=== PATIENT | female | born 1965 | race Caucasian/White ===

== ENCOUNTER 2016-12-03 01:10 | Inpatient (IN) | payer MEDICAID, OTHER ==
[2016-12-03] VITALS (10 sets, daily range): BP systolic 87–156; BP diastolic 66–90
[~2016-12-03] VITALS: Ht 160 cm; Wt 118.4 kg
[~2016-12-03 01:10] MED LIST: CYCL-405 PO; GLUXL5 PO; HYDR-4446 PO; HYDR-699 PO; [UNRECOGNIZED DRUG - CODE] PO
--- NOTE | 2016-12-03 01:12 | NUR ---
BIBA TO ER BED 6
--- NOTE | 2016-12-03 01:12 | NUR ---
Patient being evaluated by physician at bedside.
[2016-12-03] MEDS ORDERED: NACL 0.9% 2,000 ML IV ONE ×2 (01:18→02:25)
[2016-12-03] MEDS ORDERED: ALBUTEROL SULFATE/IPRATROPIU 3 ML SOL IH ONE (01:20)
[2016-12-03] MEDS ORDERED: HYDROmorphone 1 MG/ML AMP IVP ONE ×2 (01:25→02:45)
--- NOTE | 2016-12-03 01:28 | NUR ---
PATIENT REFUSED DUONEB N TREATMENT, DR. BURCH IS AWARE
[2016-12-03] MEDS ORDERED: ACET-3783 PO (01:34)
--- NOTE | 2016-12-03 01:50 | NUR ---
51/F c/o severe abdominal pain accompanied by N/V x2 hours. Pt c/o 10/10 severe abdominal pain. Pt biba from home. Pt arrived pale, diaphoretic. AOX4, clear speech. Pt had stomach surgery 2 months ago, pt states "My stomach exploded and they had to fix it." Abdomen large, soft, tender active bowel sounds x4 quadrants. Pt placed on case monitor, pulse oximetry and blood pressure monitoring.
[2016-12-03] MEDS ORDERED: ONDANSETRON 4 MG/2 ML VIAL IVP ONE ×2 (02:00→02:45)
[2016-12-03 02:01] LABS: HEMATOCRIT 50.6 % (36-48); MEAN CORPUSCULAR HEMOGLOBIN 24 pg (27-31); MEAN CORPUSCULAR HGB CONC 32 g/dL (33-37); MEAN CORPUSCULAR VOLUME 76 fL (80-94); PLATELET COUNT (AUTO) 491 K/uL (140-450); RED BLOOD CELL COUNT(AUTO) 6.68 MIL/uL (4.20-5.40); RED CELL DISTRIBUTION WIDTH 16.1 % (11.6-13.7); WHITE BLOOD COUNT (AUTO) 14.8 K/uL (4.8-10.8)
--- NOTE | 2016-12-03 02:06 | NUR ---
Pt taken to CT via rarturo.
[2016-12-03 02:16] LABS: LYMPHOCYTES % (MANUAL) 34 % (20-46); MONOCYTES % (MANUAL) 6 % (5-12); PROTHROMBIN TIME 10.9 secs (10.8-13.4)
[2016-12-03 02:21] LABS: ALBUMIN 4.1 g/dL (3.4-5.0); ANION GAP 23.6 (8-16); CARBON DIOXIDE 16.2 mmol/L (21-32); CREATININE 1.4 mg/dL (0.6-1.3); POTASSIUM 3.8 mmol/L (3.5-5.1); TOTAL BILIRUBIN 1.1 mg/dL (0.0-1.0)
[2016-12-03] MEDS ORDERED: LEVOFLOXACIN 750 MG/D5W PREMIX 150 ML IV ONE (02:25)
[2016-12-03] MEDS ORDERED: metroNIDAZOLE 500 MG/NS PREMIX 100 ML IV ONE (02:25)
--- NOTE | 2016-12-03 02:34 | NUR ---
Pt returned from CT
[2016-12-03] MEDS ORDERED: INSULIN HUMAN REGULAR 100 UNITS/ML 10 ML VIAL IVP ONE (03:25)
[2016-12-03 03:45] LABS: APPEARANCE,URINE CLEAR (CLEAR); BILIRUBIN,URINE 1+ (NEGATIVE); BLOOD, URINE NEGATIVE (NEGATIVE); COLOR,URINE YELLOW (YELLOW); LEUKOCYTE ESTERASE ,URINE NEGATIVE (NEGATIVE); NITRITE, URINE NEGATIVE (NEGATIVE); PH,URINE 5.5 (5.0-9.0); UGLUCOSE TRACE (NEGATIVE)
[2016-12-03] MEDS ORDERED: HYDROcodone/APAP 7.5/325 MG 1 TAB PO PRN ×2 (03:55→07:50)
[2016-12-03] MEDS ORDERED: ACETAMINOPHEN 325 MG TAB PO PRN ×2 (03:55→07:50)
[2016-12-03] MEDS ORDERED: ONDANSETRON 4 MG/2 ML VIAL IM/IVP PRN (03:55)
[2016-12-03] MEDS ORDERED: DOCUSATE SODIUM 100 MG GELCAP PO PRN ×2 (03:55→07:50)
[2016-12-03 04:03] LABS: RBC,URINE 0-5 (RARE) /HPF (0-5); WBC,URINE 0-5 (RARE) /HPF (0-5)
[2016-12-03 04:04] LABS: HYALINE CASTS, URINE 0-10 /LPF (None Seen); URINE AMORPHOUS URATE 3+ /HPF (None Seen)
[2016-12-03] MEDS: BLOOD GLUCOSE MONITORING 1 DEV DEV FS SCH ×17 (04:05→21:00)
[2016-12-03] MEDS ORDERED: INSULIN HUMAN REGULAR 100 UNITS in NACL 0.9% 100 ML IV SCH (04:05)
[2016-12-03] MEDS ORDERED: DEXTROSE 50% 50 ML SYR IVP PRN ×3 (04:05→19:40)
[2016-12-03] MEDS ORDERED: ONDANSETRON 4 MG/2 ML VIAL IVP PRN (04:05)
[2016-12-03] MEDS: MORPHINE SULFATE 2 MG/ML SYR IVP PRN ×2 (04:06→07:40)
[2016-12-03 04:08] LABS: BARBITURATE, URINE NEG. ng/ml (NEG <=200); BENZODIAZEPINE, URINE NEG. ng/mL (NEG <=200); CANNABINOID, URINE NEG. ng/mL (NEG <=50); COCAINE, URINE NEG. ng/mL (NEG <=300); OPIATE, URINE POS. ng/mL (NEG <=2000); PHENCYCLIDINE SCREEN,URINE NEG. ng/mL (NEG <=25)
--- NOTE | 2016-12-03 04:18 | NUR ---
IVP PAIN MEDS GIVEN PAIN NOW 07/01. VSS, PT STABLE, RESP E/U, AAOX4.
[2016-12-03 04:22] LABS: FREE T4 (FREE THYROXINE) 1.41 ng/dL (0.76-1.46); MAGNESIUM 1.5 mg/dL (1.8-2.4); PHOSPHORUS 3.8 mg/dL (2.5-4.9); THYROID STIMULATING HORMONE 1.77 uIU/mL (0.34-3.74)
--- NOTE | 2016-12-03 04:39 | NUR ---
Patient will be admitted to care of DR SAWYER. Admited to ICU. Will go to room 1. Belongings list completed. Report to .
--- NOTE | 2016-12-03 05:00 | NUR ---
RECEIVED REPORT FROM HALLIE ROJAS. PT TRANSPORTED WITH RN ON [facility]. ABLE TO AMBULATE TO BED WITH STEADY GAIT. PT IS ALERT AND ORIENTED X4. VERBALLY RESPONSIVE. ABLE TO FOLLOW COMMAND. C/O 7/10 PAIN. MD AT BEDSIDE AND NOTIFIED. WILL AWAIT MD ASSESSMENT INSTRUCTED. BILATERAL PERRLA NOTED. PT ON RA SATURATING AT 92%. TOLERATING WELL. ST ON MONITOR. UNABLE TO AUSCULTATE BOWEL SOUNDS. MD AWARE. ABDOMEN APPEARS DISTENDED, TENDER TO PALPATION. NAUSEA AND EPISODES OF LITTLE EMESIS NOTED. HEALED SURGICAL INCISION FROM RECENT ABDOMINAL SURGERY NOTED. PER PT, SHE IS ABLE TO VOID FREELY. WILL ALERT STAFF WHEN SHE NEEDS TO VOID. ABLE TO MOVE ALL EXTREMITIES. GENERALIZED WEAKNESS NOTED. R HAND 22 GAUGE IV NOTED. INTACT AND PATENT. CONTINUING INSULIN DRIP. L WRIST 20 GAUGE NOTED. INTACT AND PATENT. SAFETY PRECAUTION MAINTAINED. CALL LIGHT WITHIN REACH. BED AT LOWEST SETTING. WILL CONTINUE TO MONITOR FOR CHANGES.
[2016-12-03] MEDS: NACL 0.9% 1,000 ML IV SCH ×5 (05:18→20:20)
[2016-12-03] MEDS ORDERED: DEXT 5% / NACL 0.45% 1,000 ML IV PRN (06:40)
--- NOTE | 2016-12-03 07:17 | NUR ---
ENDORSED CARE TO HALLIE KOWALSKI. PT IS STABLE.
--- NOTE | 2016-12-03 07:20 | NUR ---
RECEIVED PT FROM HALLIE KELLY. PT SEEN AT BEDSIDE; C/O 8/10 BACK PAIN. PER MD, HOLD PAIN MEDS AT THIS TIME UNTIL XR IS DONE FOR SBO. PT IS AAOX4, ON ROOM AIR, NO S/S DISTRESS OR SOB. PT HAS LEFT WRIST 20G IV RUNNING IVF AND RIGHT HAND 22G IV RUNNING INSULIN DRIP. ON SIGNAL TIMER; HR [address] PT IS NPO AT THIS TIME; BOWEL SOUNDS ABSENT. REDNESS ON ABD FOLDS AND HEALED MIDLINE ABD INCISION NOTED. PT ABLE TO MOVE X4 EXTREMITIES AND TURN SELF. CALL LIGHT LEFT AT BEDSIDE. SAFETY MEASURES CHECKED, WILL CONTINUE TO MONITOR.
--- NOTE | 2016-12-03 07:34 | NUR ---
DR UMANZOR AND RESIDENTS AT BEDSIDE. UPDATED MD ON PATIENT CONDITION. PER MD, OK TO GIVE PAIN MEDICATION RIGHT NOW. MD WILL ALSO PUT IN ORDER FOR NGT INSERTION. WILL FOLLOW UP ON ORDERS.
--- NOTE | 2016-12-03 07:40 | NUR ---
PT C/O 10/31 BACK PAIN. PER LYNSEY VILLALPANDO TO GIVE MORPHINE. MORPHINE ADMINISTERED WITH EDUCATION. PT VERBALIZED UNDERSTANDING.
[2016-12-03] MEDS ORDERED: MORPHINE SULFATE 2 MG/ML SYR IVP PRN ×2 (07:50→21:15)
[2016-12-03] MEDS ORDERED: KETOROLAC 30 MG/ML VIAL IM PRN ×2 (07:55→20:50)
--- NOTE | 2016-12-03 08:14 | NUR ---
PATIENT HAS BEEN SCREENED AND CATEGORIZED HIGH NUTRITION RISK. PATIENT WILL BE SEEN WITHIN 1-2 DAYS OF ADMISSION. 12/03/16-12/04/[address]
--- NOTE | 2016-12-03 08:40 | NUR ---
PT ASKING FOR PAIN MEDS. TOLD PATIENT THAT DR ADAM WILL GIVE HER TORADOL FOR PAIN. PT STATED THAT SHE DOES NOT TORADOL AND WILL CALL HER BROTHER TO BRING HER PAIN MEDS. TOLD PATIENT THAT THE REASON WHY WE ARE NOT GIVING NARCOTICS UNTIL AFTER XRAY IS BECAUSE SHE HAS DX OF SBO. GIVING NARCOTICS WILL MAKE HER BOWELS NOT WORK EVEN MORE. PT VERBALIZED UNDERSTANDING, BUT WILL REQUESTS NARCOTIC PAIN MEDS. DR ADAM NOTIFIED. PER DR ADAM, DO NOT GIVE OPIOIDS UNTIL AFTER XRAY IS DONE.
--- NOTE | 2016-12-03 08:46 | NUR ---
XR TECH AT BEDSIDE. PER LYNSEY ORELLANA TO GIVE DILAUDID AFTER XRAY.
[2016-12-03] MEDS ORDERED: HYDROmorphone 1 MG/ML AMP IVP PRN ×2 (08:55→09:05)
--- NOTE | 2016-12-03 09:07 | NUR ---
ADMINISTERED DILAUDID PER MD ORDER. WILL CONTINUE TO MONITOR.
[2016-12-03] MEDS ORDERED: HYDROmorphone 1 MG/ML AMP IVP SCH (09:10)
[2016-12-03] MEDS ORDERED: LORazepam 2 MG/ML VIAL IVP SCH ×3 (09:12→20:55)
[2016-12-03] MEDS ORDERED: MAG SULF 2000 MG/WATER PREMIX 50 ML IV SCH ×2 (09:15→12:00)
--- NOTE | 2016-12-03 09:30 | NUR ---
PT'S BROTHER, MANJEET, AND PT'S SON VISITING. MANJEET CAN BE REACHED AT [phone]. UPDATED MANJEET ON PT CONDITION.
[2016-12-03 09:36] LABS: ANION GAP 14.4 (8-16); CARBON DIOXIDE 24.4 mmol/L (21-32); CREATININE 1.1 mg/dL (0.6-1.3); POTASSIUM 4.8 mmol/L (3.5-5.1)
--- NOTE | 2016-12-03 10:30 | NUR ---
MEDICATIONS ADMINISTERED WITH EDUCATION. PT VERBALIZED UNDERSTANDING. WILL CONTINUE TO MONITOR.
--- NOTE | 2016-12-03 10:36 | NUR ---
PT C/O NAUSEA. ZOFRAN ADMINISTERED. WILL CONTINUE TO MONITOR.
--- NOTE | 2016-12-03 11:18 | NUR ---
PT SLEEPING AT THIS TIME. NO S/S DISTRESS OR SOB. WILL CONTINUE TO MONITOR.
--- NOTE | 2016-12-03 11:25 | NUR ---
12/03/16 RD INITIAL ASSESSMENT COMPLETED PLEASE REFER TO NUTRITION ASSESSMENT UNDER CARE ACTIVITY FOR ESTIMATED NUTRITIONAL NEEDS. 1. WHEN MEDICALLY FEASIBLE, INITIATE PO DIET - TO START ON CLEAR LIQUID DIET AND ADVANCE TOLERATED TO 60G CONSISTENT CARBOHYDRATE DIET 2. RD TO FOLLOW-UP HIGH RISK, 2-[address]
[2016-12-03 12:57] LABS: ANION GAP 11.2 (8-16); CARBON DIOXIDE 26.4 mmol/L (21-32); POTASSIUM 4.6 mmol/L (3.5-5.1)
--- NOTE | 2016-12-03 13:17 | NUR ---
DR LEPE AT NURSING STATION. NOTIFIED THAT ANION GAP 11.2. BG 173. ASKING MD IF IT IS OK TO START PT ON SUBQ INSULIN AND D/C DRIP. WILL PUT IN ORDERS. WILL FOLLOW UP.
[2016-12-03] MEDS ORDERED: DEXT 5% / NACL 0.45% 1,000 ML IV SCH (13:25)
--- NOTE | 2016-12-03 14:38 | NUR ---
DR LEPE PREPWILIAM FOR CENTRAL LINE INSERTION. ATIVAN AND DILAUDID ADMINISTERED PER MD ORDERS. WILL CONTINUE TO MONITOR.
[2016-12-03] MEDS ORDERED: LIDOCAINE 1% 500 MG/50 ML VIAL INJ SCH ×3 (15:10→15:15)
--- NOTE | 2016-12-03 15:19 | NUR ---
DR LEPE INSERTING CENTRAL LINE AT THIS TIME. ASKING FOR ATIVAN 1MG AND LIDOCAINE 1% FOR CENTRAL LINE. MD STATED IT IS OK TO TAKE VERBAL ORDER. ORDERS PLACED. ATIVAN ADMINISTERED TO PATIENT AND LIDOCAINE DRAWN FOR MD. WILL CONTINUE TO MONITOR.
--- NOTE | 2016-12-03 15:47 | NUR ---
DR. LEPE TALKING TO PT'S BROTHER, MANJEET. PER , DO NOT GIVE NARCOTIC PAIN MEDS AT THIS TIME. WILL FOLLOW UP WITH ORDERS.
--- NOTE | 2016-12-03 15:48 | NUR ---
XR TECH AT BEDSIDE.
[2016-12-03 16:33] LABS: ANION GAP 14.2 (8-16); CREATININE 0.8 mg/dL (0.6-1.3); POTASSIUM 4.2 mmol/L (3.5-5.1)
--- NOTE | 2016-12-03 18:50 | NUR ---
DR ADAM AT BEDSIDE TALKING TO PATIENT. NOTIFIED MD THAT PT'S HR HAS BEEN 130S SINCE CENTRAL LINE INSERTION. ALSO, PT IS C/O PAIN. PER DR ADAM, SBO IS GETTING WORSE D/T NARCOTICS. MD EXPLAINING TO PT THE RISKS ASSOCIATED WITH TAKING MORE NARCOTICS WITH SBO. PT STILL REFUSING TORADOL FOR PAIN MED. ASKED MD TO CHANGE FINGER STICKS TO Q4H. MD STATED THAT HE WILL PUT IN ORDERS. ALSO NOTIFIED MD THAT SMALL BOWEL SERIES IS NOT DONE BECAUSE PT'S BOWELS ARE NOT MOVING. WILL FOLLOW UP WITH ORDERS.
[2016-12-03] MEDS: INSULIN LISPRO SLIDING SCALE 100 UNITS/ML VIAL SUBQ PRN ×2 (18:59→21:00)
--- NOTE | 2016-12-03 19:25 | NUR ---
ENDORSED PLAN OF CARE TO HALLIE LI.
[2016-12-03] MEDS ORDERED: INSULIN HUMAN REGULAR 100 UNITS/ML 10 ML VIAL SUBQ PRN (19:40)
--- NOTE | 2016-12-03 20:00 | NUR ---
REPORT TAKEN FROMDAY NURSE WITH RESUME CARE
[2016-12-03] MEDS ORDERED: MECLIZINE 25 MG TAB PO PRN (20:50)
[2016-12-03] MEDS ORDERED: GABAPENTIN 300 MG CAP PO SCH (20:55)
[2016-12-03] MEDS ORDERED: BLOOD GLUCOSE MONITORING 1 DEV DEV FS SCH (21:00)
[2016-12-03] MEDS ORDERED: MORPHINE SULFATE 2 MG/ML SYR IVP SCH (21:10)
--- NOTE | 2016-12-03 21:30 | NUR ---
PT VOMIT X 1 WITH BROW COLOR, TOTAL BATH GIVEN LENINS CHANGED, PT OUT OFF BED, VOID X1, BM X1
--- NOTE | 2016-12-03 23:00 | NUR ---
ULTRASOUND DONE AT THE BEDSIDE, PT TOLERATING WELL
[2016-12-04] VITALS (12 sets, daily range): BP systolic 126–163; BP diastolic 78–105
--- NOTE | 2016-12-04 02:00 | NUR ---
PT'S ASLEEP. NO C/O OTHERS
[2016-12-04] MEDS: NACL 0.9% 1,000 ML IV SCH ×4 (02:35→21:34)
[2016-12-04 05:12] LABS: HEMOGLOBIN 13.7 g/dL (12.0-16.0); MEAN CORPUSCULAR HEMOGLOBIN 25 pg (27-31); MEAN CORPUSCULAR HGB CONC 33 g/dL (33-37); MEAN CORPUSCULAR VOLUME 76 fL (80-94); PLATELET COUNT (AUTO) 319 K/uL (140-450); RED BLOOD CELL COUNT(AUTO) 5.55 MIL/uL (4.20-5.40); WHITE BLOOD COUNT (AUTO) 6.4 K/uL (4.8-10.8)
[2016-12-04 05:26] LABS: ANION GAP 11.9 (8-16); CREATININE 0.7 mg/dL (0.6-1.3); POTASSIUM 3.9 mmol/L (3.5-5.1)
[2016-12-04 05:29] LABS: MAGNESIUM 2.1 mg/dL (1.8-2.4); PHOSPHORUS 3.1 mg/dL (2.5-4.9)
[2016-12-04 06:35] LABS: EOSINOPHILS % (MANUAL) 2 % (0-4); LYMPHOCYTES % (MANUAL) 44 % (20-46); MONOCYTES % (MANUAL) 11 % (5-12)
[2016-12-04] MEDS: BLOOD GLUCOSE MONITORING 1 DEV DEV FS SCH ×4 (07:10→21:20)
--- NOTE | 2016-12-04 07:10 | NUR ---
ACCU CHECK DONE , RESULT 247 MG/DL , HUMALOG 4 UNIT SUBQ GIVEN AT LEFT UPPER ARM , CHAIREZ - CRN WITNESS
--- NOTE | 2016-12-04 07:15 | NUR ---
REPORT ENDORSE TO DAY NURSE JACKIE - RN WITH RESUME CARE
--- NOTE | 2016-12-04 07:20 | NUR ---
RECEIVED REPORT FROM NIGHT RN FOR CONTINUITY OF CARE.
--- NOTE | 2016-12-04 07:30 | NUR ---
PATIENT IS AWAKE, ORIENTED TO PERSON, PLACE, DATE AND TIME. SKIN WARM TO TOUCH WNL, TOENAILS WNL, NO EDEMA, FINE HAIR GROWTH AND +2 BILATERAL PEDAL PULSES NOTED. RIGHT NARES NGT TO LOW INTERMITTENT SUCTION NOTED. URINE AND BOWEL CONTINENT, ABLE TO USE BEDSIDE COMMODE. RIGHT IJ CENTRAL LINE, PATENT AND INTACT. SURGICAL SCARRING NOTED TO MIDLINE ABDOMEN. ABLE TO TURN SELF WITH NO ASSISTANCE. CALL LIGHT WITHIN REACH. WILL CONTINUE TO MONITOR PATIENT.
[2016-12-04 08:46] LABS: T4 (THYROXINE) 6.6 ug/dL (4.5-12.0)
[2016-12-04] MEDS: MORPHINE SULFATE 2 MG/ML SYR IVP PRN ×6 (08:47→23:25)
[2016-12-04] MEDS: MUPIROCIN 2% OINT 22 GM TUBE TP SCH (09:00)
[2016-12-04] MEDS: INSULIN LISPRO SLIDING SCALE 100 UNITS/ML VIAL SUBQ PRN ×3 (11:29→21:32)
--- NOTE | 2016-12-04 11:43 | NUR ---
MORPHINE 1 MG GIVEN ORDERED PRN. WASTED 1 MG WITNESSED BY CRYSTAL STERLING.
--- NOTE | 2016-12-04 12:05 | NUR ---
CM NOTE CONCURRENT REVIEW FAXED TO [facility] / FAX# [phone], ATTN: MARINA #[phone]
[2016-12-04] MEDS: metroNIDAZOLE 500 MG/NS PREMIX 100 ML IV SCH ×2 (12:39→21:16)
[2016-12-04] MEDS: ONDANSETRON 4 MG/2 ML VIAL IVP PRN ×2 (16:08→19:44)
--- NOTE | 2016-12-04 19:15 | NUR ---
REPORT TAKEN FROM DAY NURSE JACKIE - RN , WITH PT WILL TRANSFER TO TELE WITH AWAITING FOR BED, AND RESUME CARE. PT'S AWAKE , ALERT, ORIENTED X 4 WITH SELF TURN AND MOVING AROUND. OK TO GIVE ICE CHIP. UP TO BEDSIDE COMMODE.
--- NOTE | 2016-12-04 20:00 | NUR ---
C/O PAIN ON AND OFF AT ABDOMINAL AND LOW BACK PAIN , PRN MORPHINE 1 MG IV P GIVEN WITH NO REACTION TO MED, EFFECTIVELY PT WENT TON SLEEP.
[2016-12-04] MEDS ORDERED: LEVOFLOXACIN 750 MG/D5W PREMIX 150 ML IV SCH (21:00)
--- NOTE | 2016-12-04 22:00 | NUR ---
PT'S ASLEEP NO PAIN NO STRESS NOTED
[2016-12-05] VITALS (7 sets, daily range): BP systolic 114–144; BP diastolic 62–91
--- NOTE | 2016-12-05 | NUR ---
PT'S C/O PAIN AND WANT PAIN MED , ASLEEP AFTER MORPHINE GIVEN , NO SOB, SELF TURN POSITION WITH NO STRESS NOTED
[2016-12-05] MEDS: MORPHINE SULFATE 2 MG/ML SYR IVP PRN ×8 (02:12→16:18)
--- NOTE | 2016-12-05 02:15 | NUR ---
PT C/O PAIN , MORPHINE GIVEN ORDER WITH PT IS ABLE TO SLEEP.
[2016-12-05] MEDS: NACL 0.9% 1,000 ML IV SCH ×3 (04:06→16:40)
--- NOTE | 2016-12-05 04:45 | NUR ---
TOTAL CARED DONE C/O PAIN WITH MEDICATED ORDER.
[2016-12-05] MEDS: metroNIDAZOLE 500 MG/NS PREMIX 100 ML IV SCH ×2 (04:59→12:30)
--- NOTE | 2016-12-05 06:05 | NUR ---
OUT OF BED, VOIDED, JOANIE ANAL CARE DONE
[2016-12-05] MEDS: BLOOD GLUCOSE MONITORING 1 DEV DEV FS SCH ×3 (06:23→16:24)
[2016-12-05] MEDS: INSULIN LISPRO SLIDING SCALE 100 UNITS/ML VIAL SUBQ PRN (06:24)
[2016-12-05 07:01] LABS: BASOPHILS # (AUTO) 0.2 K/uL (0.00-0.22); EOSINOPHILS # (AUTO) 0.2 K/uL (0-0.4); HEMATOCRIT 36.2 % (36-48); HEMOGLOBIN 11.6 g/dL (12.0-16.0); LYMPHOCYTES # (AUTO) 1.5 K/uL (2.5-16.5); LYMPHOCYTES % (AUTO) 29.5 % (20.5-51.1); MEAN CORPUSCULAR HEMOGLOBIN 25 pg (27-31); MEAN CORPUSCULAR HGB CONC 32 g/dL (33-37); MEAN CORPUSCULAR VOLUME 77 fL (80-94); MONOCYTES # (AUTO) 0.5 K/uL (0.8-1.0); NEUTROPHILS # (AUTO) 2.7 K/uL (1.8-7.7); NEUTROPHILS % (AUTO) 53.5 % (42.2-75.2); PLATELET COUNT (AUTO) 256 K/uL (140-450); RED CELL DISTRIBUTION WIDTH 15.6 % (11.6-13.7); WHITE BLOOD COUNT (AUTO) 5.1 K/uL (4.8-10.8)
--- NOTE | 2016-12-05 07:15 | NUR ---
ASSUMED CONTINUITY OF CARE FROM NIGHT RN. PATIENT IN STABLE CONDITION.
--- NOTE | 2016-12-05 07:15 | NUR ---
REPORT ENDORSE TO DAY NURSE JACKIE - RN WITH RESUME CARE
[2016-12-05 07:36] LABS: ANION GAP 9.8 (8-16); CARBON DIOXIDE 28.6 mmol/L (21-32); CREATININE 0.6 mg/dL (0.6-1.3); POTASSIUM 3.4 mmol/L (3.5-5.1)
--- NOTE | 2016-12-05 08:00 | NUR ---
DR. SAWYER AND GROUP ROUNDING ON THE PATIENT. WILL AWAIT FOR NEW ORDERS.
[2016-12-05] MEDS: MUPIROCIN 2% OINT 22 GM TUBE TP SCH (08:36)
--- NOTE | 2016-12-05 08:58 | NUR ---
RESIDENT PHYSICIAN ROBERTH CRABTREE MADE AWAKE OF PATIENT'S POTASSIUM LEVEL OF 3.4. Addendum: 12/05/16 at 1220 by Julia Cheng RN "MADE AWARE"
[2016-12-05] MEDS ORDERED: CHLORHEXADINE GLUC 2% CLOTH TP SCH (09:00)
[2016-12-05] MEDS ORDERED: PROBIOTIC SCREEN 1 EA MISC MC PRN (09:45)
--- NOTE | 2016-12-05 11:50 | NUR ---
CM NOTE CONCURRENT REVIEW FAXED TO [facility] / FAX# [phone], ATTN: MARINA #[phone]
--- NOTE | 2016-12-05 12:16 | NUR ---
PATIENT WAS ASKING FOR SPRITE, I TOLD HER SHE CAN NOT HAVE IT. PATIENT GOT UPSET AND STATED SHE WANTS TO GO HOME. RESIDENT PHYSICIAN DR. LEPE MADE AWARE.
--- NOTE | 2016-12-05 15:01 | NUR ---
1106 CALLED [facility] [phone] AND SPOKE WITH COMPUTER SUPPORT SPECIALIST INSTRUCTOR MARIAJOSE AND REQUESTED TELEMETRY BED FOR TRANSFER WITH ACCEPTING PHYSICIAN DR BLANKENSHIP AND SURGEON DR CORNELIA PASTOR WHO PERFORMED PTS PRIOR SURGERY AT [facility]. FAXED REQUESTED INFORMATION TO [phone]
[2016-12-05] MEDS ORDERED: BACTO TP (16:44)
[2016-12-05] MEDS ORDERED: CHLO118S2 TP (16:44)
--- NOTE | 2016-12-05 16:45 | NUR ---
REPORT GIVEN TO MALIK STERLING AT [facility].
--- NOTE | 2016-12-05 18:10 | NUR ---
PATIENT TRANSFERRED TO [facility] PER GIAN, IN STABLE CONDITION. ACCOMPANIED BY [facility] PERSONNEL.
== END 2016-12-05 18:10 | disposition short-term general hospital (02) | DRG 420 ==
LOC: MED 01:10 → MIC 03:51
PROVIDERS: ADMIT Family Medicine; ATTEND Family Medicine
PROC: 0D9670Z Drainage of Stomach with Drainage Device, Via Natural or Artificial Opening (ICD-10-PCS; 2016-12-03)
PROC: 02HV33Z Insertion of Infusion Device into Superior Vena Cava, Percutaneous Approach (ICD-10-PCS; principal; 2016-12-04)
PROC: B548ZZA Ultrasonography of Superior Vena Cava, Guidance (ICD-10-PCS; 2016-12-04)
DX: E13.10 Other specified diabetes mellitus with ketoacidosis without coma (principal); N17.0 Acute kidney failure with tubular necrosis; K56.60 Unspecified intestinal obstruction; B95.62 Methicillin resistant Staphylococcus aureus infection as the cause of diseases classified elsewhere; E87.8 Other disorders of electrolyte and fluid balance, not elsewhere classified; D68.59 Other primary thrombophilia; Z68.42 Body mass index [BMI] 45.0-49.9, adult; E83.42 Hypomagnesemia; E87.1 Hypo-osmolality and hyponatremia; E66.01 Morbid (severe) obesity due to excess calories; I10 Essential (primary) hypertension; F32.9 Major depressive disorder, single episode, unspecified; D72.828 Other elevated white blood cell count; K21.9 Gastro-esophageal reflux disease without esophagitis; J45.909 Unspecified asthma, uncomplicated; F17.210 Nicotine dependence, cigarettes, uncomplicated; K31.84 Gastroparesis; F11.90 Opioid use, unspecified, uncomplicated; F43.9 Reaction to severe stress, unspecified; Z90.49 Acquired absence of other specified parts of digestive tract; Z90.710 Acquired absence of both cervix and uterus; Z83.3 Family history of diabetes mellitus; Z82.49 Family history of ischemic heart disease and other diseases of the circulatory system; Z79.84 Long term (current) use of oral hypoglycemic drugs; Z91.013 Allergy to seafood; Z88.0 Allergy status to penicillin
CPT/HCPCS: 36415; 36600; 71010; 74000; 74250; 80048; 80053; 80305; 81001; 82140; 82150; 82803; 82948; 83036; 83605; 83690; 83735; 83880; 84100; 84436; 84439; 84443; 84479; 84484; 85025; 85610; 87040; 87081; 87086; 93925; 93970; 96361; 96365; 96368; 96375; 96376; 99291; C1758; J1170; J1642; J1815; J1956; J2001; J2060; J2270; J2405; J3475; J3490; J7030; Q0092

== ENCOUNTER 2023-07-08 18:32 | Observation (INO) | payer MEDICAID ==
[~2023-07-08] VITALS: Ht 162.6 cm; Wt 108.9 kg
[~2023-07-08 18:32] MED LIST changes: +ACET-5636 PO; +ACET-8905 PO; +BACTO TP; +CHLO118S2 TP; -CYCL-405 PO; +CYCL-711 PO; -HYDR-4446 PO; +[UNRECOGNIZED DRUG - CODE] PO; -[UNRECOGNIZED DRUG - CODE] PO
[2023-07-08 18:47] VITALS: BP 132/59; PULSE 114; RESP 20; TEMP 101.2; O2SAT 99
[2023-07-08] MEDS: ALBUTEROL 0.083% 2.5 MG/3 ML NEBU INH ONE (19:35)
[2023-07-08 19:36] LABS: EOSINOPHILS % (AUTO) 0.1 % (0.0-4.0); HEMATOCRIT 32.6 % (36-48); HEMOGLOBIN 10.8 g/dL (12.0-16.0); LYMPHOCYTES # (AUTO) 0.5 K/uL (2.5-16.5); LYMPHOCYTES % (AUTO) 3.4 % (20.5-51.1); MEAN CORPUSCULAR HEMOGLOBIN 26 pg (27-31); MEAN CORPUSCULAR HGB CONC 33 g/dL (33-37); MEAN CORPUSCULAR VOLUME 78.8 fL (80-94); MONOCYTES # (AUTO) 0.8 K/uL (0.8-1.0); MONOCYTES % (AUTO) 5.4 % (1.7-9.3); NEUTROPHILS % (AUTO) 91.1 % (42.2-75.2); PLATELET COUNT (AUTO) 243 K/uL (140-450); RED BLOOD CELL COUNT(AUTO) 4.13 MIL/uL (4.20-5.40); RED CELL DISTRIBUTION WIDTH 14.3 % (11.6-13.7); WHITE BLOOD COUNT (AUTO) 15.3 K/uL (4.8-10.8)
[2023-07-08 19:42] LABS: ANION GAP 20.1 (8-16); CALCIUM 8.5 mg/dL (8.5-10.1); CARBON DIOXIDE 19.8 mmol/L (21-32); CREATININE 0.9 mg/dL (0.6-1.3)
[2023-07-08] MEDS: ACETAMINOPHEN EXTRA STRENGTH 500 MG TAB PO ONE (19:43)
[2023-07-08] MEDS: KETOROLAC 30 MG/ML VIAL IVP ONE (19:43)
[2023-07-08 19:51] LABS: POTASSIUM 2.9 mmol/L (3.5-5.1)
[2023-07-08 20:08] LABS: INR 1.23 (0.8-1.2); PROTHROMBIN TIME 12.8 secs (10.8-13.4)
[2023-07-08] MEDS: IPRATROPIUM 0.02% 0.5 MG/2.5 ML NEBU INH ONE (20:16)
[2023-07-08] MEDS: LEVOFLOXACIN 750 MG/D5W PREMIX 150 ML IV ONE (21:04)
[2023-07-08] MEDS: POTASSIUM CHLORIDE 10 MEQ TABER PO ONE ×2 (21:05)
[2023-07-08] MEDS: NACL 0.9% 1,000 ML IV ONE ×2 (21:06→23:43)
[2023-07-08 22:45] LABS: LACTIC ACID 3.5 mmol/L (0.4-2.0)
[2023-07-08] MEDS ORDERED: VANCOMYCIN 1,000 MG VIAL ONE (23:30)
[2023-07-08] MEDS: VANCOMYCIN 1,000 MG in DEXTROSE 5% 250 ML IV ONE (23:43)
[2023-07-09] MEDS ORDERED: METOCLOPRAMIDE 10 MG/2 ML INJ VIAL IVP PRN (01:15)
[2023-07-09] MEDS ORDERED: ACETAMINOPHEN 325 MG TAB PO PRN (01:15)
[2023-07-09] MEDS ORDERED: ONDANSETRON 4 MG/2 ML VIAL IVP PRN (01:15)
[2023-07-09] MEDS ORDERED: KCL 20 MEQ IN 100 mL PREMIX 200 ML IV PRN (01:15)
[2023-07-09] MEDS ORDERED: MAG SULF 2000 MG/WATER PREMIX 50 ML IV PRN (01:15)
[2023-07-09] MEDS ORDERED: MAGNESIUM OXIDE 400 MG TAB PO PRN (01:15)
[2023-07-09] MEDS ORDERED: cefTRIAXone 1,000 MG VIAL ONE (02:04)
[2023-07-09] MEDS: MORPHINE SULFATE 4 MG/ML SYR IVP PRN (02:13)
[2023-07-09] MEDS ORDERED: AZITHROMYCIN 500 MG INJ VIAL IV ONE (03:00)
[2023-07-09] MEDS: AZITHROMYCIN 500 MG in DEXTROSE 5% 250 ML IV SCH (03:03)
[2023-07-09] MEDS: NACL 0.9% 1,000 ML IV SCH (05:28)
[2023-07-09] MEDS ORDERED: DEXTROSE 50% 50 ML SYR IVP PRN (08:15)
[2023-07-09] MEDS: DOCUSATE SODIUM 100 MG GELCAP PO SCH (09:00)
[2023-07-09 09:26] LABS: EOSINOPHILS # (AUTO) 0.1 K/uL (0-0.4); HEMOGLOBIN 10.1 g/dL (12.0-16.0)
[2023-07-09 09:29] LABS: EOSINOPHILS % (AUTO) 0.5 % (0.0-4.0); HEMATOCRIT 30.4 % (36-48); LYMPHOCYTES # (AUTO) 0.7 K/uL (2.5-16.5); LYMPHOCYTES % (AUTO) 4.7 % (20.5-51.1); MEAN CORPUSCULAR HEMOGLOBIN 26 pg (27-31); MEAN CORPUSCULAR HGB CONC 33 g/dL (33-37); MEAN CORPUSCULAR VOLUME 78.3 fL (80-94); MONOCYTES # (AUTO) 0.7 K/uL (0.8-1.0); MONOCYTES % (AUTO) 5.4 % (1.7-9.3); NEUTROPHILS # (AUTO) 12.5 K/uL (1.8-7.7); NEUTROPHILS % (AUTO) 89.4 % (42.2-75.2); PLATELET COUNT (AUTO) 252 K/uL (140-450); RED BLOOD CELL COUNT(AUTO) 3.89 MIL/uL (4.20-5.40); RED CELL DISTRIBUTION WIDTH 14.3 % (11.6-13.7)
[2023-07-09 09:42] LABS: ALBUMIN 2.4 g/dL (3.4-5.0); ANION GAP 13.9 (8-16); CALCIUM 7.7 mg/dL (8.5-10.1); CARBON DIOXIDE 22.7 mmol/L (21-32); CREATININE 0.9 mg/dL (0.6-1.3); POTASSIUM 3.6 mmol/L (3.5-5.1); TOTAL BILIRUBIN 0.9 mg/dL (0.0-1.0); TOTAL PROTEIN, SERUM 6.7 g/dL (6.4-8.2)
[2023-07-09] MEDS: CLONIDINE HYDROCHLORIDE 0.1 MG TAB PO SCH (10:13)
[2023-07-09] MEDS: lisinopriL 20 MG TAB PO SCH (10:13)
[2023-07-09] MEDS: CYCLOBENZAPRINE 10 MG TAB PO SCH (10:14)
[2023-07-09 10:38] LABS: FLU A ANTIGEN negative (NEGATIVE); FLU B ANTIGEN NEGATIVE (NEGATIVE)
[2023-07-09] MEDS: HYDROcodone/APAP 5/325 MG 1 TAB TAB PO PRN (10:41)
[2023-07-09 11:13] VITALS: PULSE 85; RESP 18; O2SAT 99
[2023-07-09 12:00] VITALS: BP 112/80; PULSE 85; RESP 18; TEMP 101.2; O2SAT 99
[2023-07-09] MEDS: BLOOD GLUCOSE MONITORING 1 DEV DEV FS SCH (12:00)
[2023-07-09 15:56] VITALS: PULSE 98; RESP 24; O2SAT 97
[2023-07-09] MEDS: ALBUTEROL SULFATE/IPRATROPIU 3 ML SOL IH SCH (15:56)
[2023-07-09 16:00] VITALS: BP 133/57; PULSE 97; RESP 18; TEMP 97.4; O2SAT 99
[2023-07-09] MEDS ORDERED: ALBUTEROL SULFATE/IPRATROPIU 3 ML SOL IH PRN (16:05)
[2023-07-09 18:40] LABS: APPEARANCE,URINE CLEAR (CLEAR); BILIRUBIN,URINE NEGATIVE (NEGATIVE); BLOOD, URINE 1+ (NEGATIVE); COLOR,URINE YELLOW (YELLOW); LEUKOCYTE ESTERASE ,URINE NEGATIVE (NEGATIVE); NITRITE, URINE NEGATIVE (NEGATIVE); PH,URINE 6.5 (5.0-9.0); PROTEIN,URINE NEGATIVE (NEGATIVE); UGLUCOSE NEGATIVE (NEGATIVE); UROBILINOGEN,URINE 0.2 EU/dL (0.2 - 1)
[2023-07-09 18:56] LABS: BACTERIA,URINE FEW /HPF (None Seen); RBC,URINE 0-5 /HPF (0-5); SQUAMOUS EPITHELIAL CELL,UR 0-3 (FEW) /LPF (0-3 (FEW)); WBC,URINE NONE SEEN /HPF (0-5)
[2023-07-09 19:10] VITALS: PULSE 110; RESP 20; O2SAT 95
[2023-07-09 20:00] VITALS: BP 107/54; PULSE 101; RESP 18; TEMP 97.9; O2SAT 98
[2023-07-09] MEDS: INSULIN LISPRO SLIDING SCALE 100 UNITS/ML VIAL SUBQ PRN (20:34)
[2023-07-10 04:00] VITALS: BP 127/62; PULSE 100; RESP 18; TEMP 97.1; O2SAT 97
[2023-07-10 07:12] LABS: BASOPHILS % (AUTO) 0.3 % (0.0-2.0); EOSINOPHILS # (AUTO) 0.1 K/uL (0-0.4); EOSINOPHILS % (AUTO) 1.1 % (0.0-4.0); HEMATOCRIT 29.8 % (36-48); LYMPHOCYTES # (AUTO) 1.3 K/uL (2.5-16.5); MEAN CORPUSCULAR HEMOGLOBIN 26 pg (27-31); MEAN CORPUSCULAR HGB CONC 34 g/dL (33-37); MEAN CORPUSCULAR VOLUME 78.4 fL (80-94); MONOCYTES # (AUTO) 0.6 K/uL (0.8-1.0); MONOCYTES % (AUTO) 5.2 % (1.7-9.3); NEUTROPHILS # (AUTO) 8.9 K/uL (1.8-7.7); NEUTROPHILS % (AUTO) 81.4 % (42.2-75.2); PLATELET COUNT (AUTO) 278 K/uL (140-450); RED BLOOD CELL COUNT(AUTO) 3.79 MIL/uL (4.20-5.40); RED CELL DISTRIBUTION WIDTH 13.9 % (11.6-13.7); WHITE BLOOD COUNT (AUTO) 10.9 K/uL (4.8-10.8)
[2023-07-10 07:15] VITALS: PULSE 99; RESP 18; O2SAT 99
[2023-07-10 07:41] LABS: ALBUMIN 2.3 g/dL (3.4-5.0); ANION GAP 14.2 (8-16); CALCIUM 8.2 mg/dL (8.5-10.1); CARBON DIOXIDE 24.2 mmol/L (21-32); CREATININE 0.7 mg/dL (0.6-1.3); POTASSIUM 3.4 mmol/L (3.5-5.1); TOTAL BILIRUBIN 0.6 mg/dL (0.0-1.0); TOTAL PROTEIN, SERUM 6.6 g/dL (6.4-8.2)
[2023-07-10 08:00] VITALS: BP 165/82; PULSE 65; PULSE 67; RESP 18; TEMP 97.7; O2SAT 97
[2023-07-10] MEDS: POTASSIUM CHLORIDE 10 MEQ TABER PO PRN (08:27)
[2023-07-10] MEDS ORDERED: ALBU0.0912 IH (09:32)
[2023-07-10] MEDS ORDERED: CEFD300C3 PO (09:32)
[2023-07-10 13:22] VITALS: BP 130/82; PULSE 78; RESP 18; TEMP 98.5
[2023-07-10] MEDS ORDERED: LEVO750T75 PO (15:37)
== END 2023-07-10 15:53 | disposition home or self-care (01) ==
LOC: MED 18:32 → MTU 07-09 01:13
PROVIDERS: ADMIT Internal Medicine; ATTEND Internal Medicine
DX: A41.9 Sepsis, unspecified organism (principal); Z20.822 Contact with and (suspected) exposure to COVID-19; R65.20 Severe sepsis without septic shock; J96.20 Acute and chronic respiratory failure, unspecified whether with hypoxia or hypercapnia; J18.9 Pneumonia, unspecified organism; I11.0 Hypertensive heart disease with heart failure; I50.9 Heart failure, unspecified; E11.9 Type 2 diabetes mellitus without complications; E87.1 Hypo-osmolality and hyponatremia; E87.6 Hypokalemia; E87.20 Acidosis, unspecified; E66.01 Morbid (severe) obesity due to excess calories; D72.829 Elevated white blood cell count, unspecified; K43.9 Ventral hernia without obstruction or gangrene; Z79.899 Other long term (current) drug therapy; Z90.49 Acquired absence of other specified parts of digestive tract; Z90.710 Acquired absence of both cervix and uterus; Z88.0 Allergy status to penicillin; Z68.41 Body mass index [BMI] 40.0-44.9, adult
CPT/HCPCS: 36415; 71045; 74176; 80048; 80053; 81001; 82948; 83605; 83690; 83735; 83880; 84484; 85025; 85610; 85730; 87040; 87081; 87426; 87804; 94640; 94760; 96361; 96365; 96366; 96367; 96368; 96372; 96375; 96376; 99291; G0378; J0456; J0696; J1644; J1815; J1885; J1956; J2270; J3370; J7060; J7613; J7644; 93005